=== PATIENT | male | born 1940 | race Caucasian/White ===

== ENCOUNTER 2025-04-28 01:05 | Observation (INO) | payer MEDICARE ==
[2025-04-28 03:08] LABS: #Basophils 0.03 10x3/uL (0.0-0.2); #Eosinophils 0.04 10x3/uL (0.0-0.7); #Monocytes 0.75 10x3/uL (0.11-0.59); #Neutrophils 9.25 10x3/uL (1.40-6.50); %Basophils 0.3 % (0.0-1.0); %Eosinophils 0.4 % (0.0-10.0); %Lymphocytes 7.4 % (21.0-51.0); %Monocytes 6.9 % (0.0-10.0); %Neutrophils 84.6 % (42.0-75.0); Hematocrit 37.4 % (42.0-52.0); Hemoglobin 12.3 g/dL (14.0-18.0); Mean Corpuscular Hemoglobin 30.6 pg (27.0-31.0); Mean Corpuscular Volume 93.0 fL (78.0-98.0); Platelet Count 190 10x3/uL (130-400); Red Blood Cell (RBC) Count 4.02 mill/uL (4.70-6.10); White Blood Cell (WBC) Count 10.92 10x3/uL (4.8-10.8)
[2025-04-28 03:20] LABS: Cocaine Metabolite Screen Negative (Negative); THC/Cannabinoid Screen Negative (Negative); Tricyclic Screen Negative (Negative)
[2025-04-28 03:25] LABS: Bacteria/HPF None Seen HPF (None Seen); CAUTI Indications for Culture Alt mental st,lethar; Glucose, Urine (Dipstick) Normal (Negative); Leukocyte Negative Leu/uL (Negative); Protein, Urine (Dipstick) Negative (Neg-Trace); RBC/HPF Greater than 50 HPF (0-3); Specific Gravity, Urine 1.021 (1.002-1.036); WBC/HPF 0-3 HPF (0-3)
[2025-04-28 03:27] LABS: Lipase 21 U/L (8-78); Magnesium 2.0 mg/dL (1.6-2.6)
[2025-04-28 03:28] LABS: Acetaminophen Less than 10 mcg/mL (Less than 10); Salicylate Less than 8.0 mg/dL (Less than 8.0)
[2025-04-28 03:29] LABS: ALT (SGPT) 11 U/L (Less than 45); AST (SGOT) 26 U/L (11-34); Albumin 3.5 g/dL (3.1-4.5); Alkaline Phosphatase 52 U/L (40-110); Anion Gap 12 mmol/L (10-20); BUN (Urea Nitrogen) 17 mg/dL (8.4-25.7); Bilirubin, Total 0.7 mg/dL (0.3-1.2); Calc. Creatinine Clearance 0 mL/min (70-130); Calcium 8.4 mg/dL (7.8-10.44); Carbon Dioxide 26 mmol/L (23-31); Chloride 108 mmol/L (98-107); Globulin 2.7 g/dL (2.4-3.5); Glucose 103 mg/dL (83-110); Potassium 4.1 mmol/L (3.5-5.1); Sodium 142 mmol/L (136-145)
[2025-04-28 03:36] LABS: Urine Culture Reflex No No
[2025-04-28 03:47] LABS: Free T4 (Free Thyroxine) 1.01 ng/dL (0.70-1.48); Thyroid Stimulating Hormone 1.3256 uIU/mL (0.35-4.94)
[2025-04-28] MEDS ORDERED: Acetaminophen 325 MG TAB PO PRN (09:12)
[2025-04-28] MEDS ORDERED: Senokot S 8.6-50 MG TAB PO PRN (09:12)
[2025-04-28] MEDS ORDERED: FLU (Fluad Triv) 25-26 (65UP)PF 45 MCG/0.5 ML Syringe IM ONE (10:00)
[2025-04-28] MEDS ORDERED: Iopamidol 370 76% 100 ML VIAL ONE (10:05)
[2025-04-28] MEDS ORDERED: Maxitrol 0.1% Opth 5 ML BOT R EYE SCH (13:00)
[2025-04-28] MEDS ORDERED: Maxitrol 0.1% Opth 5 ML BOT EA EYE SCH (13:00)
[2025-04-28] MEDS ORDERED: NEOMYCIN R EYE SCH (13:00)
[2025-04-28] MEDS ORDERED: DEXAMETHASONE R EYE SCH (13:00)
[2025-04-28] MEDS ORDERED: POLYMYXIN B R EYE SCH (13:00)
[2025-04-28 13:56] VITALS: BMI 20.5
[2025-04-29 04:37] LABS: ALT (SGPT) 12 U/L (Less than 45); AST (SGOT) 27 U/L (11-34); Albumin 3.5 g/dL (3.1-4.5); Alkaline Phosphatase 57 U/L (40-110); Anion Gap 11 mmol/L (10-20); BUN (Urea Nitrogen) 16 mg/dL (8.4-25.7); Bilirubin, Total 0.7 mg/dL (0.3-1.2); Calc. Creatinine Clearance 55 mL/min (70-130); Calcium 8.5 mg/dL (7.8-10.44); Carbon Dioxide 24 mmol/L (23-31); Chloride 105 mmol/L (98-107); Globulin 2.9 g/dL (2.4-3.5); Glucose 88 mg/dL (83-110); Potassium 4.0 mmol/L (3.5-5.1); Sodium 136 mmol/L (136-145)
[2025-04-29 09:32] VITALS: BP 125/73; TEMP 98.1
== END 2025-04-29 11:45 | disposition home or self-care (01) ==
LOC: ERS 01:05 → ERHOLD 08:35 → T4-B 13:51
PROVIDERS: ADMIT Student in an Organized Health Care Education/Training Program; ATTEND Internal Medicine
DX: G93.40 Encephalopathy, unspecified (principal); H11.001 Unspecified pterygium of right eye; K40.90 Unilateral inguinal hernia, without obstruction or gangrene, not specified as recurrent
CPT/HCPCS: 70450; 70496; 70498; 70551; 76870; 80053; 80306; 80307 ×2; 81001; 83605; 83690; 83735; 84439; 84484; 93005; 93976; 96374; G0378 ×3; J2060; J7120; Q9967; 36415; 51701; 84443; 85025